=== PATIENT | female | born 1995 | race Caucasian/White ===

== ENCOUNTER 2016-09-06 20:49 | Emergency (ER) | payer OTHER | END 2016-09-06 22:50 | disposition left against medical advice (07) | LOC: ED 20:49 | DX: Z53.21 Procedure and treatment not carried out due to patient leaving prior to being seen by health care provider (principal) ==

== ENCOUNTER 2017-07-18 16:00 | Emergency (ER) | payer OTHER ==
[~2017-07-18] VITALS: Ht 154.9 cm; Wt 29.9 kg
[2017-07-18 18:33] VITALS: BP 126/74
== END 2017-07-18 18:33 | disposition home or self-care (01) ==
LOC: ED 16:00
DX: J06.9 Acute upper respiratory infection, unspecified (principal); J30.9 Allergic rhinitis, unspecified; R11.10 Vomiting, unspecified
CPT/HCPCS: Q0092

== ENCOUNTER 2018-07-28 15:42 | Emergency (ER) | payer OTHER ==
[~2018-07-28] VITALS: Ht 152.4 cm; Wt 38.1 kg
[2018-07-28 15:53] VITALS: BP 107/67; Ht 152.4 cm; Wt 38.1 kg
== END 2018-07-28 17:44 | disposition home or self-care (01) ==
LOC: ED 15:42
DX: M79.645 Pain in left finger(s) (principal); Z13.89 Encounter for screening for other disorder